=== PATIENT | female | born 1960 | race Caucasian/White ===

== ENCOUNTER → 2020-11-12 | Outpatient (CLI) | payer BC, OTHER ==
[~2020-11-12] MED LIST: CELEXA40 MG PO; LEVOTHYROXINE100 MCG PO; LO-DOSE ASPIRIN81 MG PO; LOSARTAN POTAS100 MG PO; METFORMIN HCL500 M2 PO; MIRALAX 119 GR119 GM PO; MIRAPEX0.75 MG PO; NORCO 7.5-3251 EACH PO; PERCOCET 5/325 T1 EA PO; PRALUENT 150 MG/ML INJ; REQUIP0.25 MG PO; WELLBUTRIN XL300 M1 PO; ZOFRAN4 MG PO
[2020-11-12 08:22] LABS: HEMOGLOBIN 11.9 gm/dl (12.3-15.3); RED BLOOD COUNT 4.13 M/UL (4.00-5.10); WHITE BLOOD COUNT 7.1 K/UL (4.5-11.0)
[2020-11-12 08:35] LABS: BUN/CREATININE RATIO 20 (0-10)
[2020-11-13 08:14] LABS: LDL CHOL. (DIRECT) 48 mg/dL (0-99); VITAMIN D, 25-HYDROXY 24.7 ng/mL (30.0-100.0)
== END ==
LOC: LAB 06:57
PROVIDERS: Internal Medicine
DX: E78.5 Hyperlipidemia, unspecified (principal); I25.10 Atherosclerotic heart disease of native coronary artery without angina pectoris; I10 Essential (primary) hypertension; E03.9 Hypothyroidism, unspecified; E55.9 Vitamin D deficiency, unspecified; R53.83 Other fatigue; R06.00 Dyspnea, unspecified; R73.01 Impaired fasting glucose; Z79.899 Other long term (current) drug therapy
CPT/HCPCS: 36415; 80053; 80061; 82607; 82746; 83036; 83880; 84439; 84443; 85025

== ENCOUNTER 2021-05-16 10:44 | Emergency (ER) | payer BC, OTHER ==
[2021-05-16 11:27] LABS: HEMOGLOBIN 11.7 gm/dl (12.3-15.3); RED BLOOD COUNT 3.99 M/UL (4.00-5.10); WHITE BLOOD COUNT 5.7 K/UL (4.5-11.0)
[2021-05-16 11:51] LABS: BUN/CREATININE RATIO 15 (0-10)
== END 2021-05-16 16:20 | disposition home or self-care (01) ==
LOC: ER1 10:44
PROVIDERS: Family Medicine
DX: J90 Pleural effusion, not elsewhere classified (principal); M79.89 Other specified soft tissue disorders; I11.9 Hypertensive heart disease without heart failure; F17.200 Nicotine dependence, unspecified, uncomplicated
CPT/HCPCS: 71045; 73630; 80053; 82550; 82553; 83874; 84484; 85025; 85379; 93005; 99285; Q9967

== ENCOUNTER → 2021-05-26 | Outpatient (CLI) | payer BC | LOC: KOH-I 10:15 | DX: R60.0 Localized edema (principal) | CPT/HCPCS: 93971 ==

== ENCOUNTER → 2021-06-11 | Outpatient (CLI) | payer BC | LOC: KOH-I 12:05 | DX: I50.9 Heart failure, unspecified (principal); R91.8 Other nonspecific abnormal finding of lung field | CPT/HCPCS: 71046 ==

== ENCOUNTER 2022-03-20 13:02 | Emergency (ER) | payer BC ==
[2022-03-20 15:04] LABS: HEMOGLOBIN 12.3 gm/dl (12.3-15.3); RED BLOOD COUNT 4.31 M/UL (4.00-5.10); WHITE BLOOD COUNT 6.4 K/UL (4.5-11.0)
== END 2022-03-20 16:31 | disposition home or self-care (01) ==
LOC: ER1 13:02
PROVIDERS: Physician Assistant
DX: N61.0 Mastitis without abscess (principal); I25.2 Old myocardial infarction; I10 Essential (primary) hypertension; Z95.5 Presence of coronary angioplasty implant and graft
CPT/HCPCS: 80053; 85025; 87040; 99283

== ENCOUNTER → 2022-03-22 | Outpatient (CLI) | payer BC | LOC: KOH-I 15:30 | DX: N18.30 Chronic kidney disease, stage 3 unspecified (principal); N28.89 Other specified disorders of kidney and ureter | CPT/HCPCS: 76775 ==

== ENCOUNTER → 2022-04-05 | Outpatient (CLI) | payer BC | LOC: CT 14:00 | DX: N28.9 Disorder of kidney and ureter, unspecified (principal); K76.0 Fatty (change of) liver, not elsewhere classified | CPT/HCPCS: 71270; Q9967 ==

== ENCOUNTER 2022-04-29 23:45 | Emergency (ER) | payer BC | END 2022-04-29 23:55 | disposition left against medical advice (07) | LOC: ER1 23:45 | DX: Z53.21 Procedure and treatment not carried out due to patient leaving prior to being seen by health care provider (principal) ==